=== PATIENT | male | born 1995 | race Caucasian/White ===

== ENCOUNTER 2025-03-16 11:48 | Emergency (ER) | payer SELFPAY ==
[~2025-03-16] VITALS: Ht 172.7 cm; Wt 75.0 kg
[2025-03-16 11:54] VITALS: O2SAT 100
[2025-03-16] MEDS ORDERED: DIPHENHYDRAMINE 50MG CAPSULE PO ONE (13:00)
[2025-03-16] MEDS ORDERED: DEXAMETHASONE 10 MG/ML VIAL PO ONE (13:00)
[2025-03-16] MEDS ORDERED: DIPH25CA83 MT (13:00)
[2025-03-16] MEDS ORDERED: EPIN0.3P3 IM (13:00)
[2025-03-16] MEDS ORDERED: HYDR453.4 TP (13:00)
[2025-03-16 13:08] VITALS: BP 119/79; PULSE 60; RESP 14; TEMP 36.8; O2SAT 99
[2025-03-16] MEDS ORDERED: DIPHENHYDRAMINE 25MG CAPSULE PO NR (13:15)
[2025-03-16] MEDS: DEXAMETHASONE 4MG TABLET PO SCH (13:22)
[2025-03-16] MEDS: FAMOTIDINE 20MG TABLET PO ONE (13:23)
== END 2025-03-16 14:00 | disposition home or self-care (01) ==
LOC: ER 11:48
DX: T78.40XA Allergy, unspecified, initial encounter (principal); X58.XXXA Exposure to other specified factors, initial encounter
CPT/HCPCS: 99283; J8540; Q0163